=== PATIENT | female | born 2000 | race Asian ===

== ENCOUNTER 2022-03-20 23:34 | Emergency (ER) | payer SELFPAY ==
[~2022-03-20] VITALS: Ht 175.3 cm; Wt 111.4 kg
[~2022-03-20 23:34] MED LIST: NOCURR
[2022-03-20 23:54] VITALS: BP 134/85
[2022-03-20] MEDS ORDERED: PRED-554 PO (23:55)
[2022-03-20] MEDS ORDERED: DIPH25CA85 PO (23:55)
== END 2022-03-21 00:15 | disposition home or self-care (01) ==
LOC: EMS 23:34
DX: L50.9 Urticaria, unspecified (principal)
CPT/HCPCS: 99283; Z7502

== ENCOUNTER 2023-03-03 05:26 | Emergency (ER) | payer MEDICAID ==
[~2023-03-03] VITALS: Ht 170.2 cm; Wt 115.9 kg
[~2023-03-03 05:26] MED LIST changes: +DIPH25CA85 PO; +PRED-554 PO
[2023-03-03 05:31] VITALS: TEMP 99.5
[2023-03-03 06:34] LABS: HEMATOCRIT 39.1 % (36-46); HEMOGLOBIN 12.9 g/dL (12.0-16.0); MEAN CORPUSCULAR HEMOGLOBIN 28.5 pg (26.0-34.0); MEAN CORPUSCULAR VOLUME 86 fL (80-100); PLATELET COUNT (AUTO) 359 K/uL (150-450); RED BLOOD CELL COUNT(AUTO) 4.54 MIL/uL (4.00-5.20); RED CELL DISTRIBUTION WIDTH 14.5 % (11.5-14.5); WHITE BLOOD COUNT (AUTO) 13.9 K/uL (4.5-11.0)
[2023-03-03 06:46] LABS: COVID AG,FIA SOURCE NASAL SWAB
[2023-03-03] MEDS ORDERED: SODIUM CHLORIDE 0.9% 1,000 ML IV ONE (07:00)
[2023-03-03] MEDS ORDERED: ONDANSETRON HCL 4 MG/2 ML VIAL IVP ONE (07:00)
[2023-03-03 07:11] LABS: SARS-COV2 (COVID) ANTIGEN,FIA Negative (Negative)
[2023-03-03 07:12] LABS: INFLUENZA TYPE A NEGATIVE FOR TYPE A (NEGATIVE); INFLUENZA TYPE B NEGATIVE FOR TYPE B (NEGATIVE)
[2023-03-03 07:14] LABS: APPEARANCE,URINE HAZY (CLEAR); BILIRUBIN,URINE NEGATIVE (NEGATIVE); COLOR,URINE LIGHT YELLOW (YELLOW); GLUCOSE, URINE (UA) NEGATIVE (NEGATIVE); KETONES,URINE NEGATIVE (NEGATIVE); LEUKOCYTE ESTERASE ,URINE LARGE (NEGATIVE); NITRATE,URINE NEGATIVE (NEGATIVE); OCCULT BLOOD,URINE LARGE (NEGATIVE); PROTEIN,URINE 30-70 mg/dL (NEGATIVE); SPECIFIC GRAVITIY, URINE 1.011 (1.003-1.030); UROBILINOGEN,URINE <=1.0 mg/dL (<=1.0)
[2023-03-03 07:26] LABS: ANION GAP 6 mmol/L (8-16); CALCIUM, TOTAL 9.3 mg/dL (8.8-10.5); CARBON DIOXIDE 29 mmol/L (22-29); CHLORIDE 101 mmol/L (98-107); GLOMERULAR FILTR. RATE CALC > 60 mL/min (>60); GLUCOSE,RANDOM 110 mg/dL (70-110); POTASSIUM 4.1 mmol/L (3.5-5.1); SODIUM SERUM 136 mmol/L (136-145); UREA NITROGEN, BLOOD 10 mg/dL (7-18)
[2023-03-03 07:30] LABS: ALANINE AMINOTRANSFERASE 27 U/L (12-78); ALBUMIN 3.6 g/dL (3.4-5.0); ALKALINE PHOSPHATASE 63 U/L (46-116); ASPARTATE AMINOTRANSFERASE 16 U/L (15-37); BILIRUBIN,TOTAL 0.3 mg/dL (0.1-1.0); LIPASE 42 U/L (16-77); TOTAL PROTEIN, SERUM 9.2 g/dL (6.4-8.2)
[2023-03-03] MEDS ORDERED: CefTRIAXone 1 GM/DEXTROSE 50 ML IV ONE (07:30)
[2023-03-03] MEDS ORDERED: PHENAZOPYRIDINE HCL 100 MG TABLET PO ONE (07:30)
[2023-03-03] MEDS ORDERED: ACETAMINOPHEN 500 MG TABLET PO ONE (07:30)
[2023-03-03 07:31] LABS: BACTERIA,URINE Few /HPF (None Seen); SQUAMOUS EPITHELIAL CELL,UR Few /LPF (None Seen)
[2023-03-03 07:31] LABS: BAND NEUTROPHILS % (MANUAL) 1 % (0-5); EOSINOPHILS % (MANUAL) 1 % (1-6); LYMPHOCYTES % (MANUAL) 24 % (22-44); MONOCYTES % (MANUAL) 7 % (2-9); RBC MORPHOLOGY COMMENT NORMAL RBC MORPH; SEGMENTED NEUTROPHILS % 67 % (40-70); TOTAL CELLS COUNTED 100
[2023-03-03] MEDS ORDERED: SODIUM CHLORIDE 0.9% 100 ML ONE (08:34)
[2023-03-03] MEDS ORDERED: IOHEXOL 350 MG/ML 100 ML VIAL ONE (08:34)
[2023-03-03] MEDS ORDERED: POLY238P PO (10:38)
[2023-03-03] MEDS ORDERED: ACET-66 PO (10:38)
[2023-03-03] MEDS ORDERED: GUAIFDM PO (10:38)
[2023-03-03] MEDS ORDERED: CEPH-558 PO (10:39)
[2023-03-03] MEDS ORDERED: PHEN-674 PO (10:39)
[2023-03-03 11:00] VITALS: BP 120/72; PULSE 89; RESP 16
== END 2023-03-03 11:05 | disposition home or self-care (01) ==
LOC: EMS 05:35
DX: K59.00 Constipation, unspecified (principal); N39.0 Urinary tract infection, site not specified; R10.30 Lower abdominal pain, unspecified; Z20.822 Contact with and (suspected) exposure to COVID-19
CPT/HCPCS: 99285; 74177; 96365; 96361; 87426; 80053; 81001; 83690; 84703; 85007; 85027; 87804; 36415; 87086; 87186; J0696; Q9967; J7030; J7050